=== PATIENT | female | born 1995 | race Hispanic/Latino ===

== ENCOUNTER 2023-12-14 15:01 | Emergency (ER) | payer SELFPAY ==
[~2023-12-14] VITALS: Ht 154.9 cm; Wt 63.6 kg
[2023-12-14] MEDS ORDERED: traMADol HCL 50 MG/TAB PO ONE (15:20)
[2023-12-14 15:30] VITALS: BP 130/81
[2023-12-14 15:46] VITALS: BP 129/63
[2023-12-14 16:00] VITALS: BP 134/83
[2023-12-14 16:15] VITALS: BP 134/81
[2023-12-14 16:16] VITALS: BP 134/81
== END 2023-12-14 16:28 | disposition home or self-care (01) | DRG 563 ==
LOC: ED 15:01
PROC: 2W3JX1Z Immobilization of Right Finger using Splint (ICD-10-PCS; principal; 2023-12-14)
DX: S62.634A Displaced fracture of distal phalanx of right ring finger, initial encounter for closed fracture (principal); W55.22XA Struck by cow, initial encounter; Y93.K2 Activity, milking an animal; Y92.71 Barn as the place of occurrence of the external cause; Y99.0 Civilian activity done for income or pay